=== PATIENT | female | born 1965 | race Caucasian/White ===

== ENCOUNTER 2025-06-02 14:10 | Emergency (ER) | payer OTHER, SELFPAY ==
--- NOTE | ~2025-06-02 | XR_ITS ---
EXAMINATION: XR CHEST CLINICAL INFORMATION: cough COMPARISON: None available. TECHNIQUE: 2 views of the chest were obtained. FINDINGS: The cardiac, hilar, and mediastinal contours are normal. Patchy opacity left base, best seen on the lateral projection. Lungs otherwise clear. There is no pneumothorax or pleural effusion. There is no focal osseous or soft tissue abnormality. XR/XR chest 2V IMPRESSION: Patchy left lower lobe pneumonia. Electronically signed by: Jone Hernandez MD 06/02/2025 03:54 PM EDT
--- NOTE | ~2025-06-02 | CT_ITS ---
CLINICAL HISTORY: PNA, CA?? --- Additional Notes or Special Instructions: And has had unintentional weight last that has significant CT chest with contrast Comparison: Chest x-ray from 06/02/2025. Findings: Solid pulmonary nodule in the right upper lobe measures 1.4 cm and abuts the pleura (imaged 29 of series 4). Mild ground-glass and centrilobular opacities are multifocal including right middle lobe. Airspace disease including consolidation in the left lower lobe concerning for pneumonia measuring 10 cm selectively. Differential considerations include pneumonia, combination of the masslike consolidation with pneumonia, and postobstructive phenomenon. Small left pleural effusion. No pneumothorax. Mediastinal lymphadenopathy is multifocal with subcarinal lymph node measuring 1.5 cm (image 31 of series 3). Vascular calcifications noted including coronary arteries. Small pericardial effusion. Low-density of the liver includes fat deposition adjacent to the falciform ligament. Calcified remnants of old granulomatous process noted in the imaged spleen in the imaged abdomen. Mild rib deformities appear old/chronic. Degenerative changes include imaged shoulders and imaged spine. Schmorl's nodes are multifocal. Fusion of the sternum and manubrium. IMPRESSION: 1. Consolidation in the left lower lobe is nonspecific by imaging. Differential considerations include pneumonia. Recommend attention on follow-up to ensure resolution. Additional diagnostics and/or pulmonology data may be informative. Also, mediastinal lymphadenopathy is present, with subcarinal lymph node measuring 1.5 cm. 2. Mild nonspecific pulmonary nodule in the right upper lobe measures 1.4 cm. 3. Additional small bilateral pulmonary opacities are nonspecific and likely infectious/inflammatory. Recommend attention on follow-up to ensure resolution. This document has been electronically signed by: Alex Killian MD on 06/02/2025 19:29:11
[2025-06-02 14:41] VITALS: BP 125/70; PULSE 90; RESP 18; TEMP 36.8; O2SAT 96; BMI 18.4
--- NOTE | 2025-06-02 14:42 | ED_ITS ---
HPI - General Adult General Chief complaint: General Medical Stated complaint: Pneumonia? Time Seen by Provider: 06/02/25 18:08 Source: patient Limitations: no limitations History of Present Illness ED Provider: Madyson Chaparro PA-C HPI narrative: 60-year-old female with a history of tobacco abuse, diabetes, chronic back pain on opiate therapy who presents with cough x3 days. Cough is dry and repetitive with the associated nausea vomiting diarrhea times. Denies abdominal pain. Patient states she has been coughing so forcefully, that it triggers her to gag and then she vomits. The diarrhea is intermittent. Denies known fever, but she is experiencing chills and night sweats. Patient also complains of unintentional significant weight loss over the past 6 months; the patient weighed 300 lb, she is now down to 127 lb. Related Data Previous Rx's ?Medication ?Instructions ?Recorded amoxicillin 875 mg-potassium 1 tab PO Q12H #19 tabs clavulanate 125 mg tablet doxycycline hyclate 100 mg capsule 100 mg PO BID #19 c aps 06/02/25 Allergies Allergy/AdvReac Type Severity Reaction Status Date / Time No Known Allergies Allergy Verified 06/02/25 14:48 Review of Systems 2 Review of Systems: Yes all other systems are reviewed and are negative Constitutional: Constitutional: Reports chills, Denies fatigue, Denies fever(s), Reports night sweats and Reports weight loss Cardiovascular: Cardiovascular: Denies chest pain Respiratory: Respiratory: Denies chest congestion, Reports cough and Denies wheezing Gastrointestinal: Gastrointestinal: Denies abdominal pain, Reports diarrhea, Reports nausea and Reports vomiting Endocrine: Endocrine: Denies fatigue Allergic/Immunologic: Allergic/Immunologic: Denies wheezing PMFSH Past Medical History Attestation statement: The following information was validated with the patient. Social History Social History Smoked in Last 30 Days: Yes Use of substances other than those prescribed or required for medical reasons: No Advance Directives: No Advance Directives Information Provided: No Physical Exam ED Vital Signs: Vital Signs - 24 hr 06/02/25 14:41 06/02/25 17:54 Temperature 98.2 F 99.0 F Pulse Rate 90 95 Respiratory Rate 18 16 Blood Pressure 125/70 114/66 Pulse Oximetry 96 98 Oxygen Delivery Method Room Air Room Air BMI result Body Mass Index 18.4 Const Other: Alert Orientation/consciousness: patient oriented x3 Resp Other: Nonlabored respiration, lungs clear somewhat diminished left base Cardio Other: Normal peripheral perfusion Skin Other: Warm dry no rash Neuro General: patient oriented x3, gait normal, no focal motor deficits and CN's II- XI intact bilaterally Psych Other: Cooperative Course Course Course Narrative: This is an RME: Additional HPI, ROS, PE not included below will be deferred to primary provider. RME assessment and note performed by: Mallorie Lopez PA-C This is a [id number]-female, with a hx of chronic back pain, diabetes, who presents to the ER with a complaint of back pain, nausea, vomiting, diarrhea. Also endorsing cough. Reports there is a lump in her left back that is causing her pain, no injury or trauma. She is a smoker - 1/2 ppd. Reports significant weight loss - reports that she weighed 300lbs 6 months ago and now weighs 127. Plan: labs, ekg, cxr Reevaluation(s) Reevaluation #1: I did offer the patient hospital admission, she declines, she would prefer to manage her pneumonia as an outpatient. Time: 19:57 Medications Administered Discontinued Medications Generic Name Dose Route Start Last Admin Trade Name Freq PRN Reason Stop Dose Admin Iohexol 65 ml 06/02/25 18:50 06/02/25 18:50 Iohexol 350 Mg/Ml 100 Ml Infus..Btl IV 06/02/25 18:51 65 ml ONCE ONE Administration Morphine Sulfate 10 mg 06/02/25 18:24 06/02/25 18:34 Morphine Sulfate 10 Mg/Ml Cartridge IVPUSH 06/02/25 18:25 10 mg ONCE ONE Administration Protocol Medical Decision Making Medical Decision Making [facility] Narrative: 60-year-old female with a history of tobacco abuse, diabetes, chronic back pain on opiate therapy who presents with cough x3 days. Cough is dry and repetitive with the associated nausea vomiting diarrhea times. Denies abdominal pain. Patient states she has been coughing so forcefully, that it triggers her to gag and then she vomits. The diarrhea is intermittent. Denies known fever, but she is experiencing chills and night sweats. Patient also complains of unintentional significant weight loss over the past 6 months; the patient weighed 300 lb, she is now down to 127 lb. Denies hemoptysis Problem: Tobacco abuse, diabetes History: Per patient I have considered the following differential diagnoses: Pneumonia, TB, cancer, COPD exacerbation, viral syndrome Plan: It is concerning that the patient your is at risk for cancer. Screening labs including chest x-ray already obtained from triage, she does have a pneumonia. I did considered TB, however she does not have hemoptysis, in the chest x-ray pattern is not consistent with TB. She has not no wheezing, she has no diagnosis of COPD to suggest a an exacerbation. Viral panel negative. I have independently reviewed the following tests: Labs: No leukocytosis, not anemic, no electrolyte abnormality, viral panel negative Chest x-ray: XR/XR chest 2V IMPRESSION: Patchy left lower lobe pneumonia. Chest CT:MPRESSION: 1. Consolidation in the left lower lobe is nonspecific by imaging. Differential considerations include pneumonia. Recommend attention on follow-up to ensure resolution. Additional diagnostics and/or pulmonology data may be informative. Also, mediastinal lymphadenopathy is present, with subcarinal lymph node measuring 1.5 cm. 2. Mild nonspecific pulmonary nodule in the right upper lobe measures 1.4 cm. 3. Additional small bilateral pulmonary opacities are nonspecific and likely infectious/inflammatory. Recommend attention on follow-up to ensure resolution. Lab Data 06/02/25 14:59 06/02/25 14:59 Labs: Lab Results 06/02/25 06/02/25 Range/Units 14:59 15:03 WBC 6.0 (4.8-10.8) X10*3/uL RBC 4.37 (4.20-5.50) X10*6/uL Hgb 13.4 (12.0-16.0) g/dl Hct 38.8 (37.0-47.0) % MCV 88.8 (80.0-98.0) fL MCH 30.7 (27.0-33.0) pg MCHC 34.5 (31.0-35.0) g/dl RDW 11.8 (11.0-16.0) % Plt Count 215 (160-400) X10*3/uL MPV 10.6 (9.4-12.3) fL Immature Gran % (Auto) 0.5 H (0.0-0.4) % Neut % (Auto) 72.8 (45-73) % Lymph % (Auto) 14.3 L (20-40) % [place] % (Auto) 11.3 H (2-11) % Eos % (Auto) 0.8 (0-4) % Baso % (Auto) 0.3 (0-2) % Lymph # (Auto) 0.9 L (1.2-4.9) X10*3/uL [place] # (Auto) 0.7 (0.1-1.2) X10*3/uL Eos # (Auto) 0.1 (0.0-0.4) X10*3/uL Baso # (Auto) 0.0 (0.0-0.2) X10*3/uL Abs Immat Gran (auto) 0.03 (0.00-0.03) X10*3/uL Absolute Neuts (auto) 4.4 (2.0-8.3) x10*3/uL Absolute Nucleated RBC 0.000 (0.0-0.012) X10*3/uL Nucleated RBC % (auto) 0.0 (0.0-0.2) /100WBC Sodium 132 L (135-145) mmol/L Potassium 4.1 (3.3-5.1) mmol/L Chloride 94 L (96-108) mmol/L Carbon Dioxide 26 (22-29) mmol/L Anion Gap 16 (12-20) BUN 11 (9-16) mg/dL Creatinine 0.72 (0.5-1.4) mg/dL Estim Creat Clear Calc 75.3 Estimated GFR > 60 Random Glucose 377 H* (60-115) mg/dL Calcium 9.3 (8.4-10.2) mg/dL Magnesium 1.9 (1.6-2.6) mg/dL Total Bilirubin 0.4 (0.0-1.0) mg/dL Direct Bilirubin 0.2 (0.0-0.5) mg/dL AST 12 (5-31) U/L ALT < 6 (0-31) U/L Alkaline Phosphatase 69 (39-117) U/L Troponin I High Sens 3.4 (<3.5-17.0) ng/L Total Protein 7.1 (6.5-8.0) g/dL Albumin 3.8 (3.5-5.0) g/dL Urine Color Yellow Urine Appearance Clear Urine pH 5.5 (5.0-9.0) Ur Specific [place] >= 1.030 H (1.005-1.025) Urine Protein Negative (Neg-Trace) mg/dL Urine Glucose (UA) >=1000 H (Negative) mg/dL Urine Ketones 80 (Negative) mg/dL Urine Blood Large (3+) H (Negative) Urine Nitrite Negative (Negative) Ur Leukocyte Esterase Negative (Negative) Urine RBC >20 H (0-2) /HPF Urine WBC 0-5 (0-5) /HPF Ur Squamous Epith Cells 3-5 (0-2) /HPF Urine Bacteria None Seen (None Seen) Hyaline Casts 3-5 (0-2) /LPF Influenza Type A (PCR) NEGATIVE (Negative) Influenza Type B (PCR) NEGATIVE (Negative) RSV RNA Qual (PCR) NEGATIVE (Negative) SARS-CoV-2 RNA (RT-PCR) NEGATIVE (Negative) Discharge Plan Discharge Clinical Impression: Nodule of right lung, Pneumonia Patient Disposition: Home, Self-Care Instructions: Community Acquired Pneumonia (ED), Pulmonary Nodules (ED) Additional Instructions: You were found to have pneumonia. You were also found to have a right-sided pulmonary nodule. You need further assessment, call your primary care provider tomorrow to initiate the process. Given your concurrent unintentional weight loss, it is concerning you may have malignancy. Take both antibiotics as directed, complete the course of each. Prescriptions: New doxycycline hyclate 100 mg capsule 100 mg PO BID Qty: 19 0RF amoxicillin-pot clavulanate 875-125 mg tablet 1 tab PO Q12H Qty: 19 0RF Print Language: Albanian
[2025-06-02 15:04] LABS: MANUAL DIFF FLAG NO
[2025-06-02 15:06] LABS: Hematocrit 38.8 % (37.0-47.0); Hemoglobin 13.4 g/dl (12.0-16.0); Imm Gran Abs Auto 0.03 X10*3/uL (0.00-0.03); Imm Gran Pct Auto 0.5 % (0.0-0.4); Lymphocytes Absolute Auto 0.9 X10*3/uL (1.2-4.9); Mean Corpuscular HGB Conc 34.5 g/dl (31.0-35.0); Mean Corpuscular Hemoglobin 30.7 pg (27.0-33.0); Mean Corpuscular Volume 88.8 fL (80.0-98.0); NRBC Abs Auto 0.000 X10*3/uL (0.0-0.012); NRBC Pct Auto 0.0 /100WBC (0.0-0.2); Platelet Count 215 X10*3/uL (160-400); Red Blood Count 4.37 X10*6/uL (4.20-5.50); White Blood Count 6.0 X10*3/uL (4.8-10.8)
[2025-06-02 15:14] LABS: Appearance Urine Clear; Glucose Urine UA >=1000 mg/dL (Negative); PH 5.5 (5.0-9.0); Specific Gravity - Urine >= 1.030 (1.005-1.025); UMIC TRIGGER UACC YES
[2025-06-02 15:24] LABS: Alanine Aminotransferase < 6 U/L (0-31); Albumin Level 3.8 g/dL (3.5-5.0); Alkaline Phosphatase 69 U/L (39-117); Anion Gap 16 (12-20); Aspartate Amino Transferase 12 U/L (5-31); Blood Urea Nitrogen 11 mg/dL (9-16); Calcium 9.3 mg/dL (8.4-10.2); Carbon Dioxide 26 mmol/L (22-29); Chloride 94 mmol/L (96-108); Creatinine Clr Calc Pharmacy 75.3; Estimated Glomerular Filt Rate > 60; Magnesium 1.9 mg/dL (1.6-2.6); Potassium 4.1 mmol/L (3.3-5.1); Sodium 132 mmol/L (135-145); Total Protein 7.1 g/dL (6.5-8.0)
[2025-06-02 15:26] LABS: Troponin-I High Sensitivity 3.4 ng/L (<3.5-17.0)
[2025-06-02 15:42] LABS: Resp Syncy Virus RNA Qual PCR NEGATIVE (Negative); SARS COV2 PCR INHOUSE NEGATIVE (Negative)
[2025-06-02 17:54] VITALS: BP 114/66; PULSE 95; RESP 16; TEMP 37.2; O2SAT 98
--- NOTE | 2025-06-02 17:59 | ECG_ITS ---
Test Reason : left sided chest pain Blood Pressure : */* mmHG Vent. Rate : 92 BPM Atrial Rate : 92 BPM P-R Int : 172 ms QRS Dur : 78 ms QT Int : 354 ms P-R-T Axes : 77 -74 55 degrees QTcB Int : 437 ms Normal sinus rhythm Possible Left atrial enlargement Left axis deviation Anteroseptal infarct , age undetermined Abnormal ECG No previous ECGs available Referred By: Generic ED Physician Electronically Signed By: Dash Daugherty
[2025-06-02] MEDS: iohexoL 350 MG/ML 100 ML INFUS..BTL 65 ML IV (18:50)
[2025-06-02 20:11] VITALS: BP 132/62; PULSE 91; RESP 20; TEMP 36.6; O2SAT 99
[2025-06-02 20:16] VITALS: BP 132/62; PULSE 91; RESP 20; TEMP 36.6; O2SAT 99
== END 2025-06-02 20:17 | disposition home or self-care (01) ==
PROVIDERS: Physician Assistant Medical; Emergency Provider Emergency Medicine Emergency Medical Services; PCP Internal Medicine
DX: J18.9 Pneumonia, unspecified organism (principal); R91.1 Solitary pulmonary nodule; R07.89 Other chest pain; Z03.818 Encounter for observation for suspected exposure to other biological agents ruled out; Z79.899 Other long term (current) drug therapy
CPT/HCPCS: 71046; 71260; 80048; 80076; 81001; 83735; 84484; 85025; 87637; 93005; 96374; 99284; J2270; Q9967

== ENCOUNTER → 2025-06-02 14:45 | Outpatient (BNV) | payer OTHER, SELFPAY | PROVIDERS: PCP Internal Medicine; Visit Provider Radiology Diagnostic Radiology | DX: R91.8 Other nonspecific abnormal finding of lung field (principal); R59.0 Localized enlarged lymph nodes; J18.9 Pneumonia, unspecified organism | CPT/HCPCS: 71046; 71260 ==

== ENCOUNTER → 2025-06-02 17:59 | Outpatient (BNV) | payer OTHER, SELFPAY | PROVIDERS: Emergency Provider Emergency Medicine Emergency Medical Services; PCP Internal Medicine; Visit Provider Internal Medicine Cardiovascular Disease | DX: R94.31 Abnormal electrocardiogram [ECG] [EKG] (principal); R07.89 Other chest pain | CPT/HCPCS: 93010 ==

== ENCOUNTER → 2025-11-11 08:17 | Outpatient (BNV) | payer OTHER, SELFPAY | PROVIDERS: PCP Internal Medicine; Referring Provider Internal Medicine; Visit Provider Internal Medicine Medical Oncology | DX: C25.9 Malignant neoplasm of pancreas, unspecified (principal); C77.2 Secondary and unspecified malignant neoplasm of intra-abdominal lymph nodes | CPT/HCPCS: 99204 ==

== ENCOUNTER 2025-11-11 10:39 | Emergency (ER) | payer OTHER, SELFPAY ==
[2025-11-11 10:44] VITALS: BP 136/73; PULSE 84; O2SAT 97
[2025-11-11 10:47] VITALS: BP 119/62; PULSE 92; RESP 16; TEMP 37; O2SAT 95; BMI 19.9
--- NOTE | 2025-11-11 11:01 | MHC.EDTECH ---
Blood glucose obtained read high, QC performed. BG rechecked high agian. RN notified.
[2025-11-11 11:02] LABS: Glucose, Whole Blood > 600 mg/dL (60-115)
[2025-11-11 11:02] LABS: Glucose, Whole Blood > 600 mg/dL (60-115)
--- NOTE | 2025-11-11 11:06 | ED_ITS ---
HPI - Recheck/Abnormal Lab/Rx General Chief Complaint: Recheck/Abnormal Lab/Rx Stated Complaint: HIGH BS/500'S PER MD OFFICE Time Seen by Provider: 11/11/25 11:06 Source: patient, EMS, RN notes reviewed and old records reviewed Mode of arrival: EMS Limitations: no limitations History of Present Illness ED Provider: Symone Olson PA-C HPI narrative: 60-year-old female with a history of insulin-dependent diabetes mellitus who presented to the ED after an outpatient dblgh-lo-qvil (POC) glucose was reported at 900?mg/dL. On arrival to the ED, repeat POC glucose was >600?mg/dL. The patient reports that her continuous glucose monitor (CGM) sensor was recalled approximately one month ago and she has not replaced it or checked her blood sugars since. She is unsure when she last administered insulin and estimates she may have missed doses for about a month. She notes decreased energy and polyuria with episodes of unrecognized incontinence (wears a pad). She denies nausea, vomiting, abdominal pain, chest pain, shortness of breath, rashes, or recent infections other than pneumonia treated in June (4-day admission at [facility]). Last oral intake was a cheeseburger ink grinder and fries last night; no intake today prior to her 08:20 appointment. Past medical history is notable for recently diagnosed cervical cancer (first discussed around May), cervical intraepithelial neoplasia, SI joint dysfunction, lumbar spinal stenosis status- post laminectomy, chronic pain syndrome, depression, and cervical radiculitis. She is on rivaroxaban (Xarelto). Patient was last seen in the ED this past May diagnosed with pneumonia. Otherwise, this is only her second visit in the ER. * Constitutional: Reports low energy. Denies fever. * HEENT: Dry mouth; otherwise negative. * Cardiovascular: Denies chest pain. * Respiratory: Denies shortness of breath. * Gastrointestinal: Denies nausea, vomiting, diarrhea, or abdominal pain. * Genitourinary: Polyuria with episodes of incontinence. * Dermatologic: Denies rashes. * Neurologic: No focal deficits reported. * Psychiatric: History of depression; no acute complaints today. * Endocrine: Reports hyperglycemia, has not been checking glucose or taking insulin for ~1 month. * She denies SI, HI, and AVH MD complaint: abnormal lab Related Data Home Medications ?Medication ?Instructions ?Recorded ?Confirmed Baby Aspirin 81 mg PO DAILY MRX1 11/11/25 11/11/25 albuterol sulfate 90 mcg/actuation 2 puff inhalation Q D-QID PRN 11/11/25 11/11/25 aerosol inhaler (Ventolin HFA) wheezing atorvastatin 20 mg tablet 20 mg PO DAILY 11/11/2510/25 baclofen 5 mg tablet 5 mg PO TID 11/11/25 5 blood sugar diagnostic (FreeStyle 11/11/25 11/11/25 Lite Strips) diclofenac sodium 1 % topical gel See Rx Instructions .Route .COMPLEX 11/11/25 11/11/25 dulaglutide 0.75 mg/0.5 mL See Rx Instructions .Route .COMPLEX 11/11/25 11/11/25 subcutaneous pen injector (Trulicity) empagliflozin 10 mg tablet 10 mg PO QAM 11/11/2511/11 (Jardiance) gabapentin 100 mg capsule 100 mg PO TID 11/11/2511/11 gabapentin 800 mg tablet 800 mg PO TID 11/11/2511/11 insulin glargine 100 unit/mL (3 40 unit subcut BID 11/11/25 mL) subcutaneous pen (Lantus Solostar U-100 Insulin) insulin syringe-needle U-100 0.3 11/11/25 11/11/25 mL 31 gauge x 5/16 (Ultra-Fine Insulin Syringe) lidocaine 5 % topical patch 1 patch topical Q12H PRN p ain 11/11/25 11/11/25 meloxicam 15 mg tablet 15 mg PO DAILY PRN pain 10/2511/11/25 metformin 1,000 mg tablet 1,000 mg PO BID 11/11/25 nicotine (polacrilex) 4 mg buccal 4 mg PO DAILY 11/11/25 mini lozenge oxycodone-acetaminophen 5 mg-325 5 - 325 tab PO DAILY 11/11/25 11/11/25 mg tablet sertraline 50 mg tablet 50 mg PO DAILY depression 11/11/25 Allergies Allergy/AdvReac Type Severity Reaction Status Date / Time No Known Allergies Allergy Verified 12/18/25 10:56 Review of Systems 2 Review of Systems: Yes all other systems are reviewed and are negative PMFSH Past Medical History Attestation statement: The following information was validated with the patient. Source: old records reviewed and nursing notes reviewed Medical History JHONATHAN III (vulvar intraepithelial neoplasia III) Uncontrolled diabetes mellitus with hyperglycemia Sacroiliac joint pain Papanicolaou smear for cervical cancer screening declined Pain in right arm Nicotine use disorder Hyperlipidemia Foraminal stenosis of lumbar region Lumbar postlaminectomy syndrome Encounter for screening colonoscopy Diabetes mellitus Depression Chronic pain syndrome Cervical radiculitis Pneumonia Surgical History History of ankle surgery History of lumbar surgery History of arthroscopy of left shoulder Family History Family History Family/Other Lung cancer Father Prostate cancer Maternal Aunt Breast cancer Mother Dementia Social History Social History Patient Tobacco Use Status: Current everyday Tobacco user Tobacco use type: Cigarette Cigarette Packs Per Day: 1 Years Smoked: 50 years Advance Directives: No Advance Directives Information Provided: No service: No Current occupational status: disabled Physical Exam 2 Exam: Exam: General: Appears in no acute distress, appears well nourished body habitus is normal, appears stated age. No septic or ill-appearing. Vitals reviewed normal, PMH/Social and Surgical hx reviewed including allergies and current medications. - reviewed for prior visits here and read . Head: Normocephalic, no obvious trauma or skin lesions noted. Eyes: EOMI, slight jaundice in eyes ENMT: dry oral mucosa Neck: trachea midline, no lymphadenopathy Cardiovascular: peripheral perfusion normal, Regular heart rate, regular rhythm Respiratory: no respiratory distress, lungs clear Abdomen: nondistended, nontender Extremities: warm and moving without difficulty no skin rashes or mottling Psych: Cooperative and calm Neuro: Alert and oriented. Vital Signs: Vital Signs: Last Vital Signs Temp 98.7 F 11/11/25 12:43 Pulse 88 11/11/25 12:43 Resp 16 11/11/25 12:43 BP 107/50 L 11/11/25 12:43 Pulse Ox 96 12/18/25 12:43 O2 Del Method Room Air 11/11/25 12:43 BMI result Body Mass Index 19.9 Medications Administered Generic Name Dose Route Start Last Admin Trade Name Freq PRN Reason Stop Dose Admin Insulin Human Regular 100 unit in 100 mls @ 6 mls/hr 11/11/25 12:00 11/11/25 16:02 Myxredlin IVCONT 3 unit/hr .[id number] PADMA 3 mls/hr Protocol Titration 6 UNIT/HR Dextrose/Sodium Chloride 1,000 mls @ 150 mls/hr 11/11/25 16:15 11/11/25 16:14 D51/2ns IVCONT 150 mls/hr .Q6H40M PADMA Administration Discontinued Medications Generic Name Dose Route Start Last Admin Trade Name Freq PRN Reason Stop Dose Admin Gabapentin 900 mg 11/11/25 14:05 11/11/25 14:09 Gabapentin 300 Mg Capsule PO 11/11/25 14:06 900 mg ONCE ONE Administration Lactated Ringer's 1,000 mls @ 999 mls/hr 11/11/25 11:06 11/11/25 13:06 Lr IV 11/11/25 12:06 Infused .Q1H1M ONE Infusion Oxycodone HCl 10 mg 11/11/25 13:04 11/11/25 13:09 Oxycodone Hcl Er 10 Mg Tab.Er.12h PO 11/11/25 13:05 10 mg ONCE ONE Administration Medical Decision Making Medical Decision Making MDM Narrative: Patient is a 60-year-old female with 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 Patient attributes her noncompliance to no insulin for the last month due to a CGM recall of her glucometer at home.IVFs ordered on arrival with DKA/HHS protocol initiated. SHe is AOx4, no skin mottling, dry oral mucosa. She is hemodynamically stable, with no acidosis or significant ketonemia, and laboratory evaluation reveals mild hyponatremia (Na 125), normal potassium, and no evidence of infection. The decision was made to initiate IV fluids and an insulin drip to address hyperglycemia and dehydration, with close monitoring for potential complications including electrolyte shifts and hypoglycemia. The plan includes transitioning to subcutaneous insulin when clinically appropriate and admitting the patient to telemetry for ongoing monitoring. ICU care is not currently indicated, and disposition will be determined based on her response to therapy. Her recent cervical cancer diagnosis is noted, but no acute oncologic intervention is required during this ED visit. 1605: Patient's glucose is now 179; she is no longer requiring an insulin drip. Will transition her to D5 1/2NS and recommend admission for reeducation and redirection on DM managment. 1627: Hospitalist Dr. Maximo Hanson has not recommended admission and recommended we send her home with a new glucometer from our outpatient pharmacy. 1637: Patient uses [facility]acy has this in stock. They will deliver it to ED for us and patient will be discharged to home. Differential Diagnosis Differential Diagnoses: The differential diagnosis associated with the presentation includes HHS/ DKA severe hyperglycemia dehydration electrolyte/metabolic dysfunction Admission/Observation Consideration of admission/observation: Escalation of care including admission/observation considered Consult Healthcare Provider Management of the patient was discussed with: Hospitalist Lab Data [facility] Lab Attestation statement: I reviewed the patient's lab results. 11/11/25 11:10 11/11/25 15:15 Labs: Lab Results 11/11/25 11/11/25 11/11/25 Range/Units 10:48 10:58 11:10 WBC 6.7 (4.8-10.8) X10*3/uL RBC 4.36 (4.20-5.50) X10*6/uL Hgb 13.0 (12.0-16.0) g/dl Hct 38.7 (37.0-47.0) % MCV 88.8 (80.0-98.0) fL MCH 29.8 (27.0-33.0) pg MCHC 33.6 (31.0-35.0) g/dl RDW 12.2 (11.0-16.0) % Plt Count 229 (160-400) X10*3/uL MPV 11.2 (9.4-12.3) fL Immature Gran % (Auto) 0.6 H (0.0-0.4) % Neut % (Auto) 80.0 H (45-73) % Lymph % (Auto) 9.8 L (20-40) % [place] % (Auto) 7.4 (2-11) % Eos % (Auto) 1.7 (0-4) % Baso % (Auto) 0.5 (0-2) % Lymph # (Auto) 0.7 L (1.2-4.9) X10*3/uL [place] # (Auto) 0.5 (0.1-1.2) X10*3/uL Eos # (Auto) 0.1 (0.0-0.4) X10*3/uL Baso # (Auto) 0.0 (0.0-0.2) X10*3/uL Abs Immat Gran (auto) 0.04 H (0.00-0.03) X10*3/uL Absolute Neuts (auto) 5.3 (2.0-8.3) x10*3/uL Absolute Nucleated RBC 0.000 (0.0-0.012) X10*3/uL Nucleated RBC % (auto) 0.0 (0.0-0.2) /100WBC VBG pH (7.32-7.43) VBG pCO2 mmHg VBG pO2 mmHg VBG HCO3 (22-26) mmol/L VBG O2 Saturation % VBG Base Excess mmol/L Sodium 125 L (135-145) mmol/L Potassium 4.6 (3.3-5.1) mmol/L Chloride 92 L (96-108) mmol/L Carbon Dioxide 25 (22-29) mmol/L Anion Gap 13 (12-20) BUN 9 (9-16) mg/dL Creatinine 0.76 (0.5-1.4) mg/dL Estim Creat Clear Calc 77.2 Estimated GFR > 60 POC Glucose > 600 H* > 600 H* (60-115) mg/dL Random Glucose 795 H* (60-115) mg/dL Calcium 8.9 (8.4-10.2) mg/dL Total Bilirubin 0.3 (0.0-1.0) mg/dL AST 39 H (5-31) U/L ALT 14 (0-31) U/L Alkaline Phosphatase 125 H (39-117) U/L Total Protein 6.9 (6.5-8.0) g/dL Albumin 4.0 (3.5-5.0) g/dL Beta-Hydroxybutyrate 0.37 H (0.02-0.27) mmol/L Urine Color Urine Appearance Urine pH (5.0-9.0) Ur Specific [place] (1.005-1.025) Urine Protein (Neg-Trace) mg/dL Urine Glucose (UA) (Negative) mg/dL Urine Ketones (Negative) mg/dL Urine Blood (Negative) Urine Nitrite (Negative) Ur Leukocyte Esterase (Negative) Urine RBC (0-2) /HPF Urine WBC (0-5) /HPF Ur Squamous Epith Cells (0-2) /HPF Urine Bacteria (None Seen) Hyaline Casts (0-2) /LPF 11/11/25 11/11/25 11/11/25 Range/Units 11:13 11:17 13:00 WBC (4.8-10.8) X10*3/uL RBC (4.20-5.50) X10*6/uL Hgb (12.0-16.0) g/dl Hct (37.0-47.0) % MCV (80.0-98.0) fL MCH (27.0-33.0) pg MCHC (31.0-35.0) g/dl RDW (11.0-16.0) % Plt Count (160-400) X10*3/uL MPV (9.4-12.3) fL Immature Gran % (Auto) (0.0-0.4) % Neut % (Auto) (45-73) % Lymph % (Auto) (20-40) % [place] % (Auto) (2-11) % Eos % (Auto) (0-4) % Baso % (Auto) (0-2) % Lymph # (Auto) (1.2-4.9) X10*3/uL [place] # (Auto) (0.1-1.2) X10*3/uL Eos # (Auto) (0.0-0.4) X10*3/uL Baso # (Auto) (0.0-0.2) X10*3/uL Abs Immat Gran (auto) (0.00-0.03) X10*3/uL Absolute Neuts (auto) (2.0-8.3) x10*3/uL Absolute Nucleated RBC (0.0-0.012) X10*3/uL Nucleated RBC % (auto) (0.0-0.2) /100WBC VBG pH 7.34 (7.32-7.43) VBG pCO2 47 mmHg VBG pO2 45 mmHg VBG HCO3 25 (22-26) mmol/L VBG O2 Saturation 74.0 % VBG Base Excess -0.3 mmol/L Sodium (135-145) mmol/L Potassium (3.3-5.1) mmol/L Chloride (96-108) mmol/L Carbon Dioxide (22-29) mmol/L Anion Gap (12-20) BUN (9-16) mg/dL Creatinine (0.5-1.4) mg/dL Estim Creat Clear Calc Estimated GFR POC Glucose 431 H* (60-115) mg/dL Random Glucose (60-115) mg/dL Calcium (8.4-10.2) mg/dL Total Bilirubin (0.0-1.0) mg/dL AST (5-31) U/L ALT (0-31) U/L Alkaline Phosphatase (39-117) U/L Total Protein (6.5-8.0) g/dL Albumin (3.5-5.0) g/dL Beta-Hydroxybutyrate (0.02-0.27) mmol/L Urine Color Yellow Urine Appearance Clear Urine pH 5.5 (5.0-9.0) Ur Specific [place] >= 1.030 H (1.005-1.025) Urine Protein Negative (Neg-Trace) mg/dL Urine Glucose (UA) >=1000 H (Negative) mg/dL Urine Ketones Negative (Negative) mg/dL Urine Blood Small (1+) H (Negative) Urine Nitrite Negative (Negative) Ur Leukocyte Esterase Negative (Negative) Urine RBC 3-5 H (0-2) /HPF Urine WBC 0-5 (0-5) /HPF Ur Squamous Epith Cells 0-2 (0-2) /HPF Urine Bacteria None Seen (None Seen) Hyaline Casts 0-2 (0-2) /LPF 11/11/25 11/11/25 11/11/25 Range/Units 14:00 14:59 15:15 WBC (4.8-10.8) X10*3/uL RBC (4.20-5.50) X10*6/uL Hgb (12.0-16.0) g/dl Hct (37.0-47.0) % MCV (80.0-98.0) fL MCH (27.0-33.0) pg MCHC (31.0-35.0) g/dl RDW (11.0-16.0) % Plt Count (160-400) X10*3/uL MPV (9.4-12.3) fL Immature Gran % (Auto) (0.0-0.4) % Neut % (Auto) (45-73) % Lymph % (Auto) (20-40) % [place] % (Auto) (2-11) % Eos % (Auto) (0-4) % Baso % (Auto) (0-2) % Lymph # (Auto) (1.2-4.9) X10*3/uL [place] # (Auto) (0.1-1.2) X10*3/uL Eos # (Auto) (0.0-0.4) X10*3/uL Baso # (Auto) (0.0-0.2) X10*3/uL Abs Immat Gran (auto) (0.00-0.03) X10*3/uL Absolute Neuts (auto) (2.0-8.3) x10*3/uL Absolute Nucleated RBC (0.0-0.012) X10*3/uL Nucleated RBC % (auto) (0.0-0.2) /100WBC VBG pH (7.32-7.43) VBG pCO2 mmHg VBG pO2 mmHg VBG HCO3 (22-26) mmol/L VBG O2 Saturation % VBG Base Excess mmol/L Sodium 136 (135-145) mmol/L Potassium 3.7 (3.3-5.1) mmol/L Chloride 100 (96-108) mmol/L Carbon Dioxide 29 (22-29) mmol/L Anion Gap 11 L (12-20) BUN 6 L (9-16) mg/dL Creatinine 0.59 (0.5-1.4) mg/dL Estim Creat Clear Calc 99.4 Estimated GFR > 60 POC Glucose 290 H 248 H (60-115) mg/dL Random Glucose 235 H (60-115) mg/dL Calcium 9.1 (8.4-10.2) mg/dL Total Bilirubin (0.0-1.0) mg/dL AST (5-31) U/L ALT (0-31) U/L Alkaline Phosphatase (39-117) U/L Total Protein (6.5-8.0) g/dL Albumin (3.5-5.0) g/dL Beta-Hydroxybutyrate (0.02-0.27) mmol/L Urine Color Urine Appearance Urine pH (5.0-9.0) Ur Specific [place] (1.005-1.025) Urine Protein (Neg-Trace) mg/dL Urine Glucose (UA) (Negative) mg/dL Urine Ketones (Negative) mg/dL Urine Blood (Negative) Urine Nitrite (Negative) Ur Leukocyte Esterase (Negative) Urine RBC (0-2) /HPF Urine WBC (0-5) /HPF Ur Squamous Epith Cells (0-2) /HPF Urine Bacteria (None Seen) Hyaline Casts (0-2) /LPF 12/18/25 Range/Units 16:00 WBC (4.8-10.8) X10*3/uL RBC (4.20-5.50) X10*6/uL Hgb (12.0-16.0) g/dl Hct (37.0-47.0) % MCV (80.0-98.0) fL MCH (27.0-33.0) pg MCHC (31.0-35.0) g/dl RDW (11.0-16.0) % Plt Count (160-400) X10*3/uL MPV (9.4-12.3) fL Immature Gran % (Auto) (0.0-0.4) % Neut % (Auto) (45-73) % Lymph % (Auto) (20-40) % [place] % (Auto) (2-11) % Eos % (Auto) (0-4) % Baso % (Auto) (0-2) % Lymph # (Auto) (1.2-4.9) X10*3/uL [place] # (Auto) (0.1-1.2) X10*3/uL Eos # (Auto) (0.0-0.4) X10*3/uL Baso # (Auto) (0.0-0.2) X10*3/uL Abs Immat Gran (auto) (0.00-0.03) X10*3/uL Absolute Neuts (auto) (2.0-8.3) x10*3/uL Absolute Nucleated RBC (0.0-0.012) X10*3/uL Nucleated RBC % (auto) (0.0-0.2) /100WBC VBG pH (7.32-7.43) VBG pCO2 mmHg VBG pO2 mmHg VBG HCO3 (22-26) mmol/L VBG O2 Saturation % VBG Base Excess mmol/L Sodium (135-145) mmol/L Potassium (3.3-5.1) mmol/L Chloride (96-108) mmol/L Carbon Dioxide (22-29) mmol/L Anion Gap (12-20) BUN (9-16) mg/dL Creatinine (0.5-1.4) mg/dL Estim Creat Clear Calc Estimated GFR POC Glucose 179 H (60-115) mg/dL Random Glucose (60-115) mg/dL Calcium (8.4-10.2) mg/dL Total Bilirubin (0.0-1.0) mg/dL AST (5-31) U/L ALT (0-31) U/L Alkaline Phosphatase (39-117) U/L Total Protein (6.5-8.0) g/dL Albumin (3.5-5.0) g/dL Beta-Hydroxybutyrate (0.02-0.27) mmol/L Urine Color Urine Appearance Urine pH (5.0-9.0) Ur Specific [place] (1.005-1.025) Urine Protein (Neg-Trace) mg/dL Urine Glucose (UA) (Negative) mg/dL Urine Ketones (Negative) mg/dL Urine Blood (Negative) Urine Nitrite (Negative) Ur Leukocyte Esterase (Negative) Urine RBC (0-2) /HPF Urine WBC (0-5) /HPF Ur Squamous Epith Cells (0-2) /HPF Urine Bacteria (None Seen) Hyaline Casts (0-2) /LPF External Record Review External record reviewed: Outpatient record Chronic Conditions Patient?s care impacted by: Diabetes Social Determinants Patient?s care significantly limited by Social Determinants of Health including: Problems related to primary support group and Other Social Determinant of Health Critical Care Time Critical Care Time Critical Care Time: Yes Total Critical Care Time: 95 Attestation: This patient required critical care. Due to the fact that the patient required a significant amount of one on one physician ? patient contact time, ordering and review of studies, arranging urgent treatment with development of a management plan, evaluation of patient's response to treatment with frequent reassessments, and discussions with other providers this patient required critical care time in excess of 30 minutes. Critical care time was indicated due to the inherent instability and/or potential for instability in this patient. The critical care time that is allocated to this patient is above and beyond any time spent on any other billable procedures performed on this patient. Discharge Plan Discharge Clinical Impression: Hyperosmolar hyperglycemic state (HHS), Acute hyponatremia Patient Disposition: Home, Self-Care Instructions: Hyperosmolar Hyperglycemic State (ED), How to Check your Blood Sugar (DC) Additional Instructions: 60-year-old female with insulin-dependent diabetes mellitus presented to the Emergency Department with?severe hyperglycemia?([id number] glucose >600 mg/dL, laboratory glucose >900 mg/dL) after missing insulin doses for approximately one month following continuous glucose monitor (CGM) recall. HOSPITAL/ED COURSE AND TREATMENT: The patient was admitted to the ED after an outpatient ydbvb-nq-[id number] glucose of 900 mg/dL. On arrival, repeat glucose was >600 mg/dL with laboratory confirmation of 795 mg/dL. She presented with symptoms of hyperglycemia including polyuria, urinary incontinence, dry mouth, and fatigue. Laboratory evaluation revealed mild hyponatremia (Na 125), no acidosis on venous blood gas, minimal ketonemia (beta-hydroxybutyrate 0.37), and glucosuria (1,000 mg/dL on urinalysis). Treatment included: * Intravenous fluid resuscitation for dehydration * Insulin drip initiated at 6 units/hour with protocol-based management * Serial glucose monitoring showing improvement: 431 mg/dL at 01:00, 290 mg/dL at 02:00, and 175 mg/dL at time of discharge * Insulin drip successfully discontinued after achieving target glucose range The patient remained hemodynamically stable throughout her ED stay with no evidence of diabetic ketoacidosis or hyperosmolar hyperglycemic state. No signs of acute infection or other precipitating illness were identified. DISCHARGE CONDITION: The patient is?clinically stable?and ready for discharge home. She is afebrile, hemodynamically stable, and endorses no active symptoms including no nausea, vomiting, abdominal pain, chest pain, shortness of breath, or signs of infection. Her blood glucose has improved to 175 mg/dL on discontinuation of insulin drip. DISCHARGE MEDICATIONS AND INSTRUCTIONS: Home Insulin Regimen: * Resume home insulin regimen as previously prescribed * The patient has insulin supplies at home * Administer insulin as directed;?do not skip or omit basal insulin doses, even if not eating well[1] Glucose Monitoring: * New glucometer provided from pharmacy; patient demonstrated understanding of proper use * Check blood glucose at least 4 times daily:?before meals and at bedtime[6] * Additional glucose checks recommended:?before exercise, when suspecting low blood sugar, after treating low blood sugar, and if experiencing symptoms of hyperglycemia * Keep a log of blood glucose readings to share with your healthcare providers General Diabetes Management: * Never stop taking insulin, even during illness or when not eating normally * Stay well-hydrated, especially during illness * Follow prescribed meal plan and medication schedule * Continue anticoagulation with rivaroxaban (Xarelto) as prescribed Return Precautions - Seek immediate medical attention if you experience:[1] * Blood glucose levels persistently >300 mg/dL despite insulin administration * Symptoms of high blood sugar: excessive thirst, frequent urination, blurred vision, extreme fatigue * Symptoms of low blood sugar: shakiness, sweating, confusion, dizziness, rapid heartbeat * Nausea, vomiting, or inability to tolerate oral fluids * Abdominal pain * Chest pain or shortness of breath * Fever, signs of infection, or any concerning symptoms * Altered mental status or confusion FOLLOW-UP RECOMMENDATIONS: Primary Care/Endocrinology: * Schedule appointment within 1-2 weeks?of discharge given recent medication changes and severe hyperglycemia episode[2] * Bring glucose log to all appointments * Discuss strategies to prevent future hyperglycemic episodes * Address ongoing diabetes management and optimization of insulin regimen * Consider diabetes self-management education and support services[8] Oncology: * Continue scheduled oncology follow-up?for recently diagnosed pancreaticobiliary carcinoma * Discuss diabetes management in the context of cancer diagnosis and treatment planning * Monitor for changes in glucose control, as hyperglycemia may improve with successful cancer treatment[11] * No acute oncologic intervention required at this time Additional Considerations: * Annual screening and ongoing monitoring for diabetes-related complications * Continued anticoagulation management * Management of chronic pain syndrome and other comorbidities as previously established PRINCIPAL DIAGNOSIS: Severe hyperglycemia/uncontrolled insulin-dependent diabetes mellitus SECONDARY DIAGNOSES: * Pancreaticobiliary carcinoma (recently diagnosed, establishing oncology care) * Mild hyponatremia (related to hyperglycemia) PROCEDURES: * Intravenous insulin infusion * Intravenous fluid resuscitation DISCHARGE DISPOSITION: Home PATIENT EDUCATION: The patient received education regarding proper glucometer use, importance of consistent insulin administration, recognition of hypoglycemia and hyperglycemia symptoms, and return precautions. The patient verbalized understanding of discharge instructions and demonstrated competency with the new glucometer. Prescriptions: No Action atorvastatin 20 mg tablet 20 mg PO DAILY meloxicam 15 mg tablet 15 mg PO DAILY PRN (Reason: pain) (DME) FreeStyle Lite Strips Strip MISCELLANEOUS TID oxycodone-acetaminophen 5-325 mg tablet 5 - 325 tab PO DAILY gabapentin 800 mg tablet 800 mg PO TID metformin 1,000 mg tablet 1,000 mg PO BID lidocaine 5 % adhesive patch,medicated 1 patch topical Q12H PRN (Reason: pain) (DME) insulin syringe-needle U-100 [Ultra-Fine Insulin Syringe] 0.3 mL 31 gauge x 5/16 syringe MISCELLANEOUS DIRECTED gabapentin 100 mg capsule 100 mg PO TID albuterol sulfate [Ventolin HFA] 90 mcg/actuation HFA aerosol inhaler 2 puff inhalation QD-QID PRN (Reason: wheezing) sertraline 50 mg tablet 50 mg PO DAILY insulin glargine [Lantus Solostar U-100 Insulin] 100 unit/mL (3 mL) insulin pen 40 unit subcut BID diclofenac sodium 1 % gel See Rx Instructions .ROUTE .COMPLEX Rx Instructions: as directed as needed. Jardiance 10 mg tablet 10 mg PO QAM Trulicity 0.75 mg/0.5 mL pen injector See Rx Instructions .ROUTE .COMPLEX Rx Instructions: as directed. nicotine (polacrilex) 4 mg mini lozenge 4 mg PO DAILY baclofen 5 mg tablet 5 mg PO TID Baby Aspirin 81 mg PO DAILY MRX1 Referrals: Juan Alberto GARCIA)Tammi MD [Physician, Hematology & Oncology] Clinical Impression: Hyperosmolar hyperglycemic state (HHS) Taurus Chan MD [Primary Care Provider, Internal Medicine] Clinical Impression: Hyperosmolar hyperglycemic state (HHS) Print Language: Frisian
[2025-11-11] MEDS: Lactated Ringers 1,000 ML 999 ML IV (11:13)
[2025-11-11 11:14] LABS: MANUAL DIFF FLAG NO
[2025-11-11 11:17] LABS: VBG HCO3 25 mmol/L (22-26); VBG O2 % Saturation 74.0 %
[2025-11-11 11:17] LABS: Venous Blood Gas Refer to POC result
[2025-11-11 11:24] LABS: Hematocrit 38.7 % (37.0-47.0); Hemoglobin 13.0 g/dl (12.0-16.0); Imm Gran Abs Auto 0.04 X10*3/uL (0.00-0.03); Imm Gran Pct Auto 0.6 % (0.0-0.4); Lymphocytes Absolute Auto 0.7 X10*3/uL (1.2-4.9); Mean Corpuscular HGB Conc 33.6 g/dl (31.0-35.0); Mean Corpuscular Hemoglobin 29.8 pg (27.0-33.0); Mean Corpuscular Volume 88.8 fL (80.0-98.0); NRBC Abs Auto 0.000 X10*3/uL (0.0-0.012); NRBC Pct Auto 0.0 /100WBC (0.0-0.2); Platelet Count 229 X10*3/uL (160-400); Red Blood Count 4.36 X10*6/uL (4.20-5.50); White Blood Count 6.7 X10*3/uL (4.8-10.8)
[2025-11-11 11:24] LABS: Appearance Urine Clear; Glucose Urine UA >=1000 mg/dL (Negative); PH 5.5 (5.0-9.0); Specific Gravity - Urine >= 1.030 (1.005-1.025); UMIC TRIGGER UACC YES
[2025-11-11 11:35] LABS: Alanine Aminotransferase 14 U/L (0-31); Albumin Level 4.0 g/dL (3.5-5.0); Alkaline Phosphatase 125 U/L (39-117); Anion Gap 13 (12-20); Aspartate Amino Transferase 39 U/L (5-31); Blood Urea Nitrogen 9 mg/dL (9-16); Calcium 8.9 mg/dL (8.4-10.2); Carbon Dioxide 25 mmol/L (22-29); Chloride 92 mmol/L (96-108); Creatinine Clr Calc Pharmacy 77.2; Estimated Glomerular Filt Rate > 60; Potassium 4.6 mmol/L (3.3-5.1); Sodium 125 mmol/L (135-145); Total Protein 6.9 g/dL (6.5-8.0)
[2025-11-11] MEDS: Insulin Regular/NS 100 UNIT/100 ML PLAST..BAG 6 UNIT IVCONT (12:00)
[2025-11-11 12:43] VITALS: BP 107/50; PULSE 88; RESP 16; TEMP 37.1; O2SAT 96
[2025-11-11] MEDS: oxyCODONE HCl ER 10 MG TAB.ER.12H PO (13:09)
[2025-11-11 13:15] LABS: Glucose, Whole Blood 431 mg/dL (60-115)
--- NOTE | 2025-11-11 13:39 | PC.NURSE ---
Patient presented to ED from primary care office with abnormal lab result. Primary care office reported that blood sugar level >900. Upon arrival, POC read >600. Lab draw glucose level reported as 795. Insulin gtt started at 1200 with rate of 10 units/hr. 1300 recheck is 431, insulin gtt decreased to 5 units/hr per protocol. Patient is asymptomatic. Patient reported not taking insulin for a couple months d/t a recent cancer diagnosis. Patient asymptomatic, on telemonitor.
[2025-11-11 14:06] LABS: Glucose, Whole Blood 290 mg/dL (60-115)
[2025-11-11 15:06] LABS: Glucose, Whole Blood 248 mg/dL (60-115)
[2025-11-11 15:38] LABS: Anion Gap 11 (12-20); Blood Urea Nitrogen 6 mg/dL (9-16); Calcium 9.1 mg/dL (8.4-10.2); Carbon Dioxide 29 mmol/L (22-29); Chloride 100 mmol/L (96-108); Creatinine Clr Calc Pharmacy 99.4; Estimated Glomerular Filt Rate > 60; Potassium 3.7 mmol/L (3.3-5.1); Sodium 136 mmol/L (135-145)
[2025-11-11 16:04] LABS: Glucose, Whole Blood 179 mg/dL (60-115)
[2025-11-11] MEDS: Dextrose 5 % and 0.45 % NaCl 1,000 ML 150 ML IVCONT (16:14)
[2025-11-11 16:52] VITALS: BP 115/58; PULSE 88; RESP 16; O2SAT 93
[2025-11-11 17:15] LABS: Glucose, Whole Blood 137 mg/dL (60-115)
[2025-11-11 17:23] VITALS: BP 138/70; PULSE 92; RESP 16; TEMP 37.1; O2SAT 93
== END 2025-11-11 17:24 | disposition home or self-care (01) ==
PROVIDERS: Physician Assistant Medical; Emergency Provider Emergency Medicine; PCP Internal Medicine
DX: E11.65 Type 2 diabetes mellitus with hyperglycemia (principal); E87.1 Hypo-osmolality and hyponatremia
CPT/HCPCS: 36415; 80048; 80053; 81001; 82010; 82803; 82947; 85025; 96365; 96366; 96367; 99284; J7120

== ENCOUNTER 2025-11-24 11:08 | Day surgery (SDC) | payer OTHER, SELFPAY ==
[2025-11-24] VITALS (13 sets, daily range): BP systolic 120–165; BP diastolic 72–102; PULSE 91–95; RESP 16; TEMP 36.1–36.7; O2SAT 96–100; BMI 19.7
--- NOTE | ~2025-11-24 | IR_ITS ---
CLINICAL HISTORY: Metastatic pancreatic cancer. The patient presents to interventional radiology for placement of a port for chemotherapy. PROCEDURES: 1. Real-time ultrasound-guided access into the right internal jugular vein after documentation of selected vessel patency, and permanent image storing in the patient records. 2. Placement of a 6.6 [place] single-lumen port. CLINICIAN: Jai Andujar NP MEDICATIONS: - Fentanyl , Lidocaine 1% SQ -Antibiotics: Ancef 2g -For additional details, please see nursing flowsheet. Complications: None. Estimated blood loss: <5 ml Specimens: None. Contrast: None. Fluoroscopy dose: 2.6 mGy MODERATE SEDATION TIME: N/a PROCEDURE NOTE: The procedure, risks, benefits, and alternatives were carefully explained to the patient and written informed consent was obtained. The patient was placed supine on the fluoroscopy table. A timeout was performed. The right neck and chest was prepped and draped in usual sterile fashion. Maximum barrier technique was utilized. Local anesthesia was administered to the access site with 1% lidocaine. Under ultrasound guidance, the right internal jugular vein was accessed with a 5 fr micropuncture set. A 0.035 in wire was advanced into the IVC. A peel-away sheath was advanced over the wire and into the SVC, and the wire was removed. Next, subcutaneous lidocaine was administered to the chest. The port pocket was created after the skin incision, utilizing blunt dissection. Using blunt dissection, a subcutaneous tunnel was created that connects from the port pocket to the venotomy site. Through the peel-away sheath, the 6.6 [place] port catheter was placed. The catheter position was verified with fluoroscopy to be at the superior vena cava/right atrial junction. The port was connected to the catheter and was placed in the pocket. The port incision site was closed with interrupted 3-0 Vicryl subcutaneous sutures and surgical glue. Prior to closing the skin, 1 g of Ancef solution was placed in the pocket. The port was tested, flushed, and packed with heparin per routine protocol. The patient tolerated the procedure well. The patient was stable after the procedure and was transferred to the PACU. The procedure was performed under moderate sedation and with a dedicated nurse with continuous monitoring of vital signs. A permanent image of the ultrasound the neck and fluoroscopic image of the chest was saved and sent to PACS. FINDINGS: 1. Patent right internal jugular vein 2. Placement of a 6.6 [place] single lumen port. 3. Port flushes and aspirates very well with a 10 mL syringe. No pneumothorax. IR/IR cvc insert tunnel w prt/crisis intervention counselor IMPRESSION: Placement of a 6.6 [place] single-lumen port. PLAN: - The patient will be discharged home when stable by sedation protocol. - Port may be used immediately. This procedure was performed by Jai Andujar NP and directly supervised by Porfirio Kemp M.D. Electronically signed by: Porfirio Kemp MD 12/03/2025 11:11 AM [facility] [place], [place] Workstation: [id number]
[2025-11-24 11:51] LABS: Glucose, Whole Blood 59 mg/dL (60-115)
[2025-11-24 12:03] LABS: INTERNATIONAL NORM RATIO 0.9 (0.9-1.1); Prothrombin Time 11.5 SEC (11.2-13.5)
--- NOTE | 2025-11-24 12:18 | PC.NURSE ---
Addendum entered by Bertha Shen RN 11/24/25 12:41: 15min POC recheck 149. patient headache no longer pounding, my sugars have been going low since my ER visit . Addendum entered by Bertha Shen RN 11/24/25 12:28: 15min POC recheck 172. patient states feeling better . Jai Andujar NP notified. Original Note: Pt states I think my sugar is low, I have a really bad heachace, my vision is blurry and I am lightheaded . [place] connect sent to Jai Andujar NP. Orders received for D50w amp IVP for symptomatic hypoglycemia with frequent POC checks.
[2025-11-24 12:30] LABS: Glucose, Whole Blood 172 mg/dL (60-115)
[2025-11-24 15:01] LABS: Glucose, Whole Blood 65 mg/dL (60-115)
[2025-11-24 15:57] LABS: Glucose, Whole Blood 168 mg/dL (60-115)
[2025-11-26 05:21] LABS: Glucose, Whole Blood 149 mg/dL (60-115)
== END 2025-11-24 15:53 | disposition home or self-care (01) ==
PROVIDERS: PCP Internal Medicine; Visit Provider Internal Medicine Medical Oncology
DX: Z45.2 Encounter for adjustment and management of vascular access device (principal); C25.9 Malignant neoplasm of pancreas, unspecified; C77.0 Secondary and unspecified malignant neoplasm of lymph nodes of head, face and neck; R91.8 Other nonspecific abnormal finding of lung field; Z87.01 Personal history of pneumonia (recurrent); G89.4 Chronic pain syndrome; M96.1 Postlaminectomy syndrome, not elsewhere classified; R61 Generalized hyperhidrosis; E78.5 Hyperlipidemia, unspecified; R53.83 Other fatigue; Z79.4 Long term (current) use of insulin; Z79.84 Long term (current) use of oral hypoglycemic drugs; Z79.85 Long-term (current) use of injectable non-insulin antidiabetic drugs; Z79.82 Long term (current) use of aspirin; Z79.899 Other long term (current) drug therapy; Z98.890 Other specified postprocedural states; F17.210 Nicotine dependence, cigarettes, uncomplicated
CPT/HCPCS: 36415; 36561; 76937; 82947; 85610; 99152; 99153; C1769; C1788; J0690; J1642; J1644; J2003; J2250; J3010

== ENCOUNTER → 2025-11-24 12:57 | Outpatient (BNV) | payer OTHER, SELFPAY | PROVIDERS: PCP Internal Medicine | DX: C25.9 Malignant neoplasm of pancreas, unspecified (principal); C77.2 Secondary and unspecified malignant neoplasm of intra-abdominal lymph nodes | CPT/HCPCS: 36561; 76937 ==